=== PATIENT | male | born 1925 | race Caucasian/White ===

== ENCOUNTER 2017-02-15 07:18 | Emergency (ER) | payer OTHER ==
[~2017-02-15] VITALS: Ht 167.6 cm; Wt 75.8 kg
[~2017-02-15 07:18] MED LIST: ADULT LOW DOSE81 MG PO; ADVIL200 M2 PO; ALLOPURINOL 30300 M1 PO; CALCIUM AND MA1 EACH PO; DEPO-TESTO100 MG/1 M IM; GEMFIBROZIL 60600 MG PO; GLUCOSAMINE PO; IRON240 MG PO; MIRAPEX0.25 MG PO; MONOPRIL10 MG PO; OMEGA-31000 MG PO; PREVACID30 M1 PO; [UNRECOGNIZED DRUG - OTHER] PO
[2017-02-15] MEDS ORDERED: TYLENOL EXTRA500 MG PO (07:49)
[2017-02-15] MEDS ORDERED: NAMENDA 10 MG T10 MG PO (07:50)
[2017-02-15] MEDS ORDERED: NAPROXEN250 MG PO (08:39)
[2017-02-15 09:00] VITALS: BP 134/70
== END 2017-02-15 09:00 | disposition home or self-care (01) ==
LOC: ER 07:18
DX: S29.012A Strain of muscle and tendon of back wall of thorax, initial encounter (principal); I10 Essential (primary) hypertension; M10.9 Gout, unspecified; E78.5 Hyperlipidemia, unspecified; Z96.651 Presence of right artificial knee joint; Z90.89 Acquired absence of other organs; Z88.8 Allergy status to other drugs, medicaments and biological substances; Z88.5 Allergy status to narcotic agent; W01.0XXA Fall on same level from slipping, tripping and stumbling without subsequent striking against object, initial encounter; Y93.89 Activity, other specified; Y92.89 Other specified places as the place of occurrence of the external cause; Y99.8 Other external cause status